=== PATIENT | female | born 1945 | race Caucasian/White ===

== ENCOUNTER 2018-09-09 08:42 | Outpatient (CLI) | payer MEDICARE, OTHER ==
--- NOTE | 2018-09-09 11:59 | CT ---
PARATHYROID SCAN WITH CT SOFT TISSUE NECK WITH AND WITHOUT CONTRAST: History: Hypercalcemia. Comparison: By history, the patient indicated that she has had previous CTs at [facility] one year ago, however, upon examination of the PACS system of the [facility], it was noted that the patient had a Nuclear Medicine parathyroid scan and no evidence of soft tissue neck C T to compare with today's exam. Technique: Pre and post contrast enhanced CT images soft tissue neck obtained. FINDINGS: There is coronary artery calcification involving the origin of the LAD. Calcification also seen in the aortic arch. The internal carotid arteries are tortuous having migrated upwards into the retropharyngeal soft tiss ues at the C3 and C4 levels. Also noted is some calcification involving the origin of the right inter nal carotid artery. The patient's thyroid gland is markedly heterogenous compatible with multinodular thyroid appearance. The left thyroid lobe is larger than the right. On axial image #65 posterior to the right thyroid lobe and inferior to the level of the thyroid carti randal there is an area of enhancement measuring approximately 7 x 13 mm, just to the right of the cerv ical esophagus and anterior medial to the right vertebral artery. This lesion demonstrates enhancemen t on the contrast enhanced images. This may represent a possible right parathyroid adenoma. IMPRESSION: 1. Possible lesion posterior to the right thyroid lobe compatible with a parathyroid adenoma. POS: C
== END 2018-09-09 08:43 | disposition home or self-care (01) ==
LOC: BICCT 08:42
PROVIDERS: ATTEND Otolaryngology Plastic Surgery within the Head & Neck
DX: E83.52 Hypercalcemia (principal); H92.03 Otalgia, bilateral
CPT/HCPCS: 70492; 82565

== ENCOUNTER 2018-11-28 18:33 | Emergency (ER) | payer MEDICARE, OTHER ==
[2018-11-28] MEDS ORDERED: HYDROcodone/Acetaminophen 10/325 mg Tablet ONE (19:16)
--- NOTE | 2018-11-28 19:16 | RAD ---
XR Knee Lt 4 View STANDARD History: Pain Comparison: None. Findings: Transversely oriented fracture of the mid patella with a 4 cm gap. Moderate effusion. Mild soft tissue swelling. Impression: Transversely oriented mid patellar fracture with a 4 cm gap.
--- NOTE | 2018-11-28 19:21 | RAD ---
XR Hand Rt 3 View STANDARD History: Trauma Comparison: None. Findings: No acute fracture or malalignment. Mild metacarpal phalangeal and interphalangeal joint spa ce narrowing with osteophyte formation. Soft tissues are unremarkable. Moderate degenerative disease of the thumb carpometacarpal joint. Impression: Moderate degenerative change. No acute fracture or malalignment.
== END 2018-11-28 20:02 | disposition home or self-care (01) ==
LOC: ERS 18:33
DX: S82.032A Displaced transverse fracture of left patella, initial encounter for closed fracture (principal); S60.221A Contusion of right hand, initial encounter; I10 Essential (primary) hypertension; D69.6 Thrombocytopenia, unspecified; W01.0XXA Fall on same level from slipping, tripping and stumbling without subsequent striking against object, initial encounter

== ENCOUNTER 2018-12-02 10:43 | Day surgery (SDC) | payer MEDICARE, OTHER ==
[2018-12-01 10:31] VITALS: BMI 28.3
[2018-12-02] MEDS ORDERED: Fentanyl 100 MCG/2 ML VIAL ONE (11:23)
[2018-12-02] MEDS ORDERED: Midazolam HCl 2 mg/2 ml Vial ONE (11:23)
[2018-12-02] MEDS ORDERED: traMADol HCl 50 MG TAB PO PRN ×2 (12:41)
[2018-12-02] MEDS ORDERED: Ropivacaine 0.2% 550 ML 550 ML NERVE BLCK SCH (12:41)
[2018-12-02] MEDS ORDERED: Zolpidem Tartrate 5 MG TAB PO PRN (12:41)
[2018-12-02] MEDS ORDERED: HYDROcodone/Acetaminophen 5/325 mg Tablet PO PRN ×2 (12:41)
[2018-12-02] MEDS ORDERED: Promethazine HCl 25 MG/ML VIAL IM PRN ×2 (12:41→14:25)
[2018-12-02] MEDS ORDERED: Ondansetron PF 4 MG/2 ML Vial IVP PRN (12:41)
[2018-12-02] MEDS ORDERED: Fentanyl 100 MCG/2 ML VIAL IV PRN (12:42)
[2018-12-02] MEDS ORDERED: Promethazine HCl 25 MG/ML VIAL SLOW IVP PRN (14:25)
[2018-12-02] MEDS ORDERED: Ondansetron HCl/PF 4 MG/2 ML Vial IVP PRN (14:25)
--- NOTE | 2018-12-03 10:23 | OP ---
DATE OF PROCEDURE: 12/02/2018 PREOPERATIVE DIAGNOSIS: Left comminuted patellar fracture. POSTOPERATIVE DIAGNOSIS: Left comminuted patellar fracture. SURGICAL PROCEDURE: Partial inferior pole patellectomy with repair of patellar tendon. ANESTHESIA: General. MECHANICAL ENGINEERING COOP: Joshua Cox PA-C ESTIMATED BLOOD LOSS: 50 mL. TOURNIQUET TIME: Approximately, 60 minutes at 300 mmHg. IMPLANTS: #5 Ethibond suture. COMPLICATIONS: None. DRAINS: None. SPECIMEN: None. OUTCOME: Satisfactory. INDICATIONS FOR PROCEDURE: The patient is a 73-year-old lady, status post fall sustaining a comminuted left patellar fracture with an inferior pole in many pieces. After discussion with the patient including risks and benefits, we have decided to proceed with either open reduction and internal fixation or partial inferior pole patellectomy depending on intraoperative findings. Informed consent has been obtained and I believe all questions answered. DESCRIPTION OF PROCEDURE: The patient was brought to the operating room and a time-out performed followed by induction of general anesthesia. Next, she was positioned supine on the OR table and a sterile prep and drape performed of left lower extremity. Next, the limb was exsanguinated with Esmarch bandage, tourniquet inflated to 300 mmHg. A midline anterior vertical knee incision was made after skin was sharply incised. Dissection was carried down bluntly to the underlying peritenon of the patellar tendon as well as the quadriceps mechanism. At this point, the fracture was well visualized. It was thoroughly irrigated to remove the fracture hematoma and the edges of the fracture at the superior pole were debrided of soft tissue to allow for full visualization of the fracture edge. The inferior pole unfortunately was found to be in approximately 5 pieces with a coronal split in addition to 4 distinct vertical splits. The articular surface component of this inferior pole was quite small, perhaps only 15% of the total articular surface of the patella. Given the comminution, the small portion of articular surface involved, it was opted to proceed with a partial patellectomy. As such, with sharp debridement, the fragments of the inferior pole were debrided. Next, #5 Ethibond suture was woven through the patellar tendon in a Krackow fashion with total of two sutures used for this and then three drill holes placed through the superior pole of patella. The sutures were then delivered up through these drill holes and then tied to their pairs respectively in excellent apposition of the patellar tendon up against the superior pole of the patella. Once affixed, attention was placed to both medial and lateral retinaculum tears. Using #2 Ethibond, these tears were repaired, getting a nice tight apposition of the edges of the torn retinaculum. Completion of this, the knee could be brought into approximately 60 degrees of flexion without excessive tension on the repair. The wound again irrigated thoroughly and then closed in layers with 2-0 Vicryl and lopez for the skin. Xeroform, gauze, and Norberto wrap dressing were applied to the knee, and then the knee was placed in a hinged knee brace locked in extension. She was then transferred to recovery room in stable condition. There were no complications. She tolerated the procedure well. Job ID: [id number]
== END 2018-12-02 17:10 | disposition home or self-care (01) ==
LOC: SDC 10:43
PROVIDERS: ATTEND Orthopaedic Surgery
PROC: 0QBF0ZZ Excision of Left Patella, Open Approach (ICD-10-PCS; principal; 2018-12-02)
DX: S82.042A Displaced comminuted fracture of left patella, initial encounter for closed fracture (principal); Z79.82 Long term (current) use of aspirin; Z79.899 Other long term (current) drug therapy; Z91.040 Latex allergy status; Z91.048 Other nonmedicinal substance allergy status; Z98.890 Other specified postprocedural states; W18.30XA Fall on same level, unspecified, initial encounter
CPT/HCPCS: 27524; 93005; 97116; 97139; A4306; 93010; J0690; J2250; J2795; J3010

== ENCOUNTER 2019-03-10 08:49 | Outpatient (CLI) | payer MEDICARE, OTHER ==
[2019-03-10] MEDS ORDERED: ISOVUE-370 76%-LOCM 1 ML ONE (10:15)
--- NOTE | 2019-03-10 12:55 | CT ---
CT NECK WITH AND WITHOUT IV CONTRAST: INDICATIONS: Hypercalcemia. TECHNIQUE: Parathyroid protocol was followed. The exam was performed in followup to a prior parathyroid CT scan performed on 09/09/2018. That exam described an enhancing nodule posterior to the right lobe of the thyroid, which would be compatible w ith parathyroid adenoma. FINDINGS: On today's exam a very heterogeneous and enlarged thyroid gland is again noted, unchanged from the pr ior exam. There are multiple thyroid nodular opacities, some of which are cystic and others are heter ogeneous. Findings are consistent with a multinodular goiter. Posterior to the right lobe of the thyroid is a nodular opacity, measuring 7 mm. This small nodule sh ows soft tissue attenuation on the precontrast image and does not indicate thyroid tissue. On postcontrast images there is enhancement of this nodule, however postcontrast images demonstrate s everal enhancing vessels at this location which appear to coalesce at this focal nodular opacity. The findings could represent a small lymph node although the findings may entirely represent vascular st ructures. A parathyroid nodule cannot be confirmed. Review of the neck shows unremarkable parotid and submandibular glands. Nonspecific level II lymph no jaye are stable. No other change in the neck from the prior study. IMPRESSION: 1. Enlarged heterogeneous thyroid with multiple nodules, consistent with a multinodular goiter, stabl e from the prior CT scan. 2. The enhancing nodule posterior to the right lobe of the thyroid is again seen. Postcontrast images show several small enhancing vessels which coalesce at this location. A parathyroid adenoma cannot b e confirmed on this study. Recommend nuclear medicine sestamibi exam with SPECT imaging following parathyroid protocol for furt her evaluation. Dr. Becker also reviewed this exam and is in agreement with this assessment. POS: NATHALIA
== END 2019-03-10 08:50 | disposition home or self-care (01) ==
LOC: BICCT 08:49
PROVIDERS: ATTEND Otolaryngology Plastic Surgery within the Head & Neck
DX: E83.52 Hypercalcemia (principal); E04.2 Nontoxic multinodular goiter
CPT/HCPCS: 70492; Q9966

== ENCOUNTER 2021-01-16 10:28 | Outpatient (CLI) | payer MEDICARE, OTHER | END 2021-01-16 10:29 | disposition home or self-care (01) | LOC: BICMAMMO 10:28 | PROVIDERS: ATTEND Internal Medicine | DX: Z13.820 Encounter for screening for osteoporosis (principal); Z78.0 Asymptomatic menopausal state; E28.39 Other primary ovarian failure; M81.0 Age-related osteoporosis without current pathological fracture | CPT/HCPCS: 77080 ==

== ENCOUNTER 2024-04-15 10:41 | Outpatient (CLI) | payer MEDICARE | END 2024-04-15 10:42 | disposition home or self-care (01) | LOC: SCSMRI 10:41 | PROVIDERS: ATTEND Nurse Practitioner Family | DX: I87.312 Chronic venous hypertension (idiopathic) with ulcer of left lower extremity (principal); L97.222 Non-pressure chronic ulcer of left calf with fat layer exposed; D47.3 Essential (hemorrhagic) thrombocythemia; M06.9 Rheumatoid arthritis, unspecified | CPT/HCPCS: 36415; 82565 ==